=== PATIENT | male | born 1990 | race Caucasian/White ===

== ENCOUNTER 2016-08-08 16:15 | Emergency (ER) | payer SELFPAY ==
[~2016-08-08] VITALS: Ht 175.3 cm; Wt 64.0 kg
[2016-08-08 16:24] VITALS: BP 128/97; PULSE 121; RESP 16; TEMP 99; O2SAT 98
--- NOTE | 2016-08-08 17:24 | PD ---
HPI Chief Complaint: Laceration/Skin Injury Time Seen by Provider: 16:30 Travel History International Travel<30 days: No Contact w/Intl Traveler<30days: No Traveled to known affect area: No History of Present Illness HPI 25-year-old male presents emergency department for evaluation of laceration right hand. Patient reports a prior to arrival he was washing a glass in the sink when it broke and a sharp edge cut the right hand. He reports no possibility of retained foreign body. He has full range of motion of all digits. Normal sensation of the digits. Bleeding well controlled. He reports mild pain at the site of the laceration, worse with movement, relieved with rest , 3-10 severity. Tetanus status unknown [facility] Past Medical History Medical History: Denies Significant Hx Diminished Hearing: No Tetanus Vaccination: Unknown Influenza Vaccination: No ?: Not Past Surgical History Surgical History: No Previous Surgery Social History Alcohol Use: No Tobacco Use: Yes (1ppd) Substance Use: No Allergies-Medications (Allergen,Severity, Reaction): Coded Allergies: No Known Allergies (Unverified , 08/08/16) Review of Systems Except as stated in HPI: all other systems reviewed are Neg Physical Exam Narrative GENERAL: Well-nourished, well-developed patient. SKIN: Focused skin assessment warm/dry. Superficial 2 cm laceration right hand medial aspect of the MCP joint. HEAD: Normocephalic. EYES: No scleral icterus. No injection or drainage. NECK: Supple, trachea midline. No JVD or lymphadenopathy. CARDIOVASCULAR: Regular rate and rhythm without murmurs, gallops, or rubs. RESPIRATORY: Breath sounds equal bilaterally. No accessory muscle use. GASTROINTESTINAL: Abdomen soft, non-tender, nondistended. MUSCULOSKELETAL: No cyanosis, or edema. Superficial 2 cm laceration right hand medial aspect of the MCP joint. No foreign body visualized. Full range of motion of right index finger. Digit has normal sensation. Brisk cap refill No evidence of retained foreign body. Data Data Last Documented VS Vital Signs Date Time Temp Pulse Resp B/P Pulse Ox O2 Delivery O2 Flow Rate FiO2 08/08/16 16:24 99.0 121 16 128/97 98 MDM Medical Decision Making Medical Screen Exam Complete: Yes Emergency Medical Condition: Yes Differential Diagnosis Finger laceration, retained foreign body, tendon injury Narrative Course 25 year-old male presents emergency department for evaluation of right hand laceration. He has a 2 cm laceration to the medial aspect of the right second MCP joint. There is no joint involvement. The laceration is superficial. It was thoroughly explored no foreign body visualized. X-ray to rule out retained foreign body suggested patient declined. Discussed risks of retained foreign body. Patient verbalizes understanding. The digit is neurovascular intact. Laceration repair performed. Discussed wound care precautions. Diagnosis Primary Impression: Hand laceration Qualified Code: S61.411A - Laceration of right hand without foreign body, initial encounter Referrals: Primary Care Physician Departure Forms: Tests/Procedures, Work Release Special Instructions: Light duty for one week Additional Instructions: Do not submerge the wound in water. He can begin showering tomorrow. Change dressing daily. Return to the emergency department if he has new or worsening symptoms. Have the sutures removed in 7-10 days. Disposition: 01 DISCHARGE HOME Condition: Stable Keli Pompa Aug 08, 2016 17:24
== END 2016-08-08 17:29 | disposition home or self-care (01) ==
LOC: PHEFT 16:15
DX: S61.411A Laceration without foreign body of right hand, initial encounter (principal); W25.XXXA Contact with sharp glass, initial encounter
CPT/HCPCS: 12001